=== PATIENT | female | born 1950 | race Caucasian/White ===

== ENCOUNTER 2016-12-06 04:19 | Emergency (ER) | payer OTHER ==
[2016-12-06 06:07] LABS: BASOPHIL 0.3 % (0-2); EOSINOPHIL 1.8 % (0-7); HCT 35.9 % (37.0-47.0); HGB 11.8 g/dl (12.5-16.0); LYMPHOCYTE 17.8 % (15-48); MCH 31.1 pg (25.0-31.0); MCHC 32.9 g/dL (32.0-36.0); MCV 94.7 fL (78.0-100.0); MONOCYTE 5.9 % (0-12); MPV 10.3 fL (6.0-9.5); NEUTROPHIL 74.2 % (41-80); PLT 254 K/uL (150-400); RBC 3.79 M/uL (4.20-5.40); RDW 13.3 % (11.5-14.0); WBC 7.6 K/uL (4.0-10.5)
[2016-12-06 06:22] LABS: BILIRUBIN - TOTAL 0.4 mg/dL (0.1-1.0); CREATININE 1.1 mg/dL (0.5-1.0); GLOBULIN (CALCULATION) 2.5 g/dL (2.2-4.2); POTASSIUM 3.5 mmol/L (3.5-5.1); TOTAL PROTEIN 6.5 g/dL (6.4-8.3)
[2016-12-06 07:54] LABS: BILIRUBIN NEGATIVE (NEGATIVE); BLOOD NEGATIVE Ery/uL (NEGATIVE); CLARITY CLEAR (CLEAR); COLOR YELLOW (YELLOW); GLUCOSE (U) NORMAL (NORMAL); KETONE (U) NEGATIVE (NEGATIVE); LEUKOCYTES TRACE Leu/uL (NEGATIVE); NITRITE NEGATIVE (NEGATIVE); PROTEIN NEGATIVE (NEGATIVE); UROBILINOGEN 0.2 mg/dL (0.2-1.0); pH 5.5 (5.0-9.0)
[2016-12-06 08:08] LABS: BACTERIA 1+; GRANULAR CASTS TRACE; SQUAMOUS EPITHELIAL CELLS 20-50
== END 2016-12-06 08:16 | disposition home or self-care (01) ==
LOC: FER 04:19
PROVIDERS: Emergency Medicine
DX: I95.1 Orthostatic hypotension (principal); Z82.49 Family history of ischemic heart disease and other diseases of the circulatory system; Z82.3 Family history of stroke; Z82.0 Family history of epilepsy and other diseases of the nervous system; Z79.899 Other long term (current) drug therapy
CPT/HCPCS: 36415; 70450; 80053; 81001; 85025; 93005

== ENCOUNTER 2020-12-20 00:30 | Day surgery (SDCO) | payer OTHER ==
[~2020-12-20] VITALS: Ht 170.2 cm; Wt 139.7 kg
[~2020-12-20 00:30] MED LIST: ASPIRIN EC81 MG PO; AUGMENTIN 875-1 EACH PO; CARTIA XT240 MG PO; CEFDINIR300 MG PO; COLACE100 MG PO; COZAAR50 MG PO; ELIQUIS5 MG PO; HCTZ25 MG PO; LASIX40 MG PO; LINZESS145 MCG PO; LIPITOR20 MG PO; MEDROL 4MG DOSEP4 MG PO; NITROQUIK SL0.4 MG SL; NORCO 5-325 TA1 EACH PO; OLMESARTAN PO; TOPROL XL 50 MG50 MG PO; XANAX0.25 MG PO; ZOLOFT100 MG PO
[2020-12-20 01:33] LABS: BASOPHIL 0.7 % (0-2); EOSINOPHIL 2.2 % (0-7); HGB 13.2 g/dl (12.5-16.0); LYMPHOCYTE 29.2 % (15-48); MCH 31.1 pg (25.0-31.0); MCHC 32.2 g/dL (32.0-36.0); MCV 96.5 fL (78.0-100.0); MONOCYTE 6.5 % (0-12); MPV 10.9 fL (6.0-9.5); NRBC 0; PLT 314 K/uL (150-400); RBC 4.25 M/uL (4.20-5.40); RDW 13.1 % (11.5-14.0); WBC 9.5 K/uL (4.0-10.5)
[2020-12-20 01:36] LABS: INR 1.22 (0.9-1.2); PROTHROMBIN TIME 14.6 SECONDS (11.4-13.6); PTT 29.2 SECONDS (22.2-34.7)
[2020-12-20 01:49] LABS: ALBUMIN 3.6 g/dL (3.4-5.0); BILIRUBIN - TOTAL 0.4 mg/dL (0.2-1.0); BUN/CREAT RATIO (CALC) 17.7 RATIO; CREATININE 0.79 mg/dL (0.51-0.95); GLOBULIN (CALCULATION) 3.9 g/dL; POTASSIUM 4.4 mmol/L (3.5-5.1); TOTAL PROTEIN 7.5 g/dL (6.4-8.2)
[2020-12-20 01:58] LABS: PRO-BNP 825 pg/mL (<125)
[2020-12-20 07:17] LABS: CORONAVIRUS 2019 SARS-COV-2 NEGATIVE (NEGATIVE)
[2020-12-20 07:18] LABS: INFLUENZA A NAA NEGATIVE (NEGATIVE)
[2020-12-20] MEDS ORDERED: LIPITOR40 MG PO (10:46)
[2020-12-20] MEDS ORDERED: SYNTHROID25 MCG PO (10:47)
[2020-12-20] MEDS ORDERED: CYMBALTA 30MG C30 MG PO (10:47)
[2020-12-20] MEDS ORDERED: METFORMIN HCL500 MG PO (10:48)
[2020-12-20] MEDS ORDERED: PRILOSEC20 MG PO (10:48)
--- NOTE | 2020-12-20 12:00 | NUR ---
PT'S [facility] INTERIGATED AT THIS TIME BY THIS NURSE
--- NOTE | 2020-12-20 13:37 | NUR ---
REPORTS SHE LIVES ALONE; INDEPENDENT WITH CARE SHE REPORTS; PLEASE ADVISE OF ANY DISCHARGE NEEDS
== END 2020-12-20 12:25 | disposition other institution (70) ==
LOC: FER 00:30 → FTCU 06:13
PROVIDERS: Emergency Medicine; ADMIT Internal Medicine
DX: I20.9 Angina pectoris, unspecified (principal); I10 Essential (primary) hypertension; E11.9 Type 2 diabetes mellitus without complications; E78.5 Hyperlipidemia, unspecified; G50.0 Trigeminal neuralgia; J44.9 Chronic obstructive pulmonary disease, unspecified; I50.9 Heart failure, unspecified; I48.91 Unspecified atrial fibrillation; E66.01 Morbid (severe) obesity due to excess calories; F17.200 Nicotine dependence, unspecified, uncomplicated; M54.9 Dorsalgia, unspecified; Z20.822 Contact with and (suspected) exposure to COVID-19; Z82.49 Family history of ischemic heart disease and other diseases of the circulatory system; Z88.6 Allergy status to analgesic agent; Z88.8 Allergy status to other drugs, medicaments and biological substances
CPT/HCPCS: 36415; 71045; 80053; 83880; 84484; 85025; 85610; 85730; 93005; G0378; J1940; U0002

== ENCOUNTER 2020-12-26 19:59 | Emergency (ER) | payer OTHER ==
[~2020-12-26 19:59] MED LIST changes: +CYMBALTA 30MG C30 MG PO; +LIPITOR40 MG PO; +METFORMIN HCL500 MG PO; +PRILOSEC20 MG PO; +SYNTHROID25 MCG PO
[2020-12-26 21:55] LABS: BASOPHIL 0.3 % (0-2); EOSINOPHIL 2.3 % (0-7); HCT 32.8 % (37.0-47.0); HGB 10.7 g/dl (12.5-16.0); MCH 31.7 pg (25.0-31.0); MCHC 32.6 g/dL (32.0-36.0); MONOCYTE 6.1 % (0-12); MPV 10.7 fL (6.0-9.5); NEUTROPHIL 76.9 % (41-80); NRBC 0; PLT 325 K/uL (150-400); RBC 3.38 M/uL (4.20-5.40); RDW 13.2 % (11.5-14.0); WBC 10.6 K/uL (4.0-10.5)
[2020-12-26 22:06] LABS: ALBUMIN 3.1 g/dL (3.4-5.0); BILIRUBIN - TOTAL 0.7 mg/dL (0.2-1.0); BUN/CREAT RATIO (CALC) 19.3 RATIO; CREATININE 0.88 mg/dL (0.51-0.95); GLOBULIN (CALCULATION) 3.7 g/dL; POTASSIUM 4.8 mmol/L (3.5-5.1); TOTAL PROTEIN 6.8 g/dL (6.4-8.2)
[2020-12-26 22:08] LABS: BILIRUBIN NEGATIVE (NEGATIVE); BLOOD NEGATIVE Ery/uL (NEGATIVE); CLARITY CLEAR (CLEAR); COLOR YELLOW (YELLOW); GLUCOSE (U) NORMAL (NORMAL); LEUKOCYTES NEGATIVE Leu/uL (NEGATIVE); NITRITE NEGATIVE (NEGATIVE); PROTEIN NEGATIVE (NEGATIVE); SPECIFIC GRAVITY >=1.030 (1.001-1.030)
== END 2020-12-27 01:30 | disposition other institution (70) ==
LOC: FER 19:59
PROVIDERS: Emergency Medicine
DX: I72.4 Aneurysm of artery of lower extremity (principal); E11.9 Type 2 diabetes mellitus without complications; Z88.6 Allergy status to analgesic agent; Z88.8 Allergy status to other drugs, medicaments and biological substances; Z86.79 Personal history of other diseases of the circulatory system
CPT/HCPCS: 36415; 80053; 81003; 83690; 85025; Q9967

== ENCOUNTER 2021-01-13 10:32 | Day surgery (SDCO) | payer OTHER ==
[2021-01-13 11:29] LABS: BASOPHIL 0.4 % (0-2); EOSINOPHIL 2.5 % (0-7); HCT 35.9 % (37.0-47.0); LYMPHOCYTE 17.6 % (15-48); MCH 32.2 pg (25.0-31.0); MCHC 33.4 g/dL (32.0-36.0); MCV 96.2 fL (78.0-100.0); MPV 10.8 fL (6.0-9.5); NRBC 0; PLT 340 K/uL (150-400); RBC 3.73 M/uL (4.20-5.40); RDW 13.5 % (11.5-14.0); WBC 10.5 K/uL (4.0-10.5)
[2021-01-13 11:32] LABS: INR 1.14 (0.9-1.2); PROTHROMBIN TIME 13.9 SECONDS (11.4-13.6); PTT 30.1 SECONDS (22.2-34.7)
[2021-01-13 11:40] LABS: BUN/CREAT RATIO (CALC) 20.9 RATIO; CREATININE 0.91 mg/dL (0.51-0.95); POTASSIUM 3.4 mmol/L (3.5-5.1)
[2021-01-13 12:08] LABS: CKMB <0.5 ng/mL (0.0-3.6); PRO-BNP 417 pg/mL (<125)
[2021-01-13] MEDS ORDERED: BRILINTA90 MG PO (16:05)
[2021-01-13] MEDS ORDERED: ASPIRIN EC81 MG PO (16:05)
[2021-01-13] MEDS ORDERED: K-DUR20 MEQ PO (16:07)
[2021-01-14 03:55] LABS: BASOPHIL 0.5 % (0-2); EOSINOPHIL 2.6 % (0-7); HCT 33.8 % (37.0-47.0); HGB 11.1 g/dl (12.5-16.0); MCH 31.7 pg (25.0-31.0); MCHC 32.8 g/dL (32.0-36.0); MCV 96.6 fL (78.0-100.0); MONOCYTE 7.4 % (0-12); MPV 10.7 fL (6.0-9.5); NEUTROPHIL 58.1 % (41-80); NRBC 0; PLT 250 K/uL (150-400); RDW 13.7 % (11.5-14.0); WBC 7.6 K/uL (4.0-10.5)
[2021-01-14 04:32] LABS: BUN/CREAT RATIO (CALC) 19.4 RATIO; CREATININE 1.03 mg/dL (0.51-0.95); FT4 (FREE T4) 1.4 ng/dL (0.76-1.46)
[2021-01-14] MEDS ORDERED: TOPROL XL 50 MG50 MG PO (15:14)
[2021-01-14] MEDS ORDERED: CARDIZEM CD120 MG PO (15:16)
--- NOTE | 2021-01-14 16:39 | NUR ---
PT DC'd FROM HOSPITAL & ESCOLRTED FROM UNIT VIA WHEELCHAIR W/ NO ISSUE @ 2849 - VS STABLE
== END 2021-01-14 16:45 | disposition home or self-care (01) ==
LOC: FER 10:32 → FTCU 14:23
PROVIDERS: Emergency Medicine; ADMIT Allergy & Immunology Allergy
DX: I25.10 Atherosclerotic heart disease of native coronary artery without angina pectoris (principal); I10 Essential (primary) hypertension; I48.91 Unspecified atrial fibrillation; E11.9 Type 2 diabetes mellitus without complications; E78.5 Hyperlipidemia, unspecified; J44.9 Chronic obstructive pulmonary disease, unspecified; F41.9 Anxiety disorder, unspecified; I82.409 Acute embolism and thrombosis of unspecified deep veins of unspecified lower extremity; Z95.1 Presence of aortocoronary bypass graft; Z87.891 Personal history of nicotine dependence; Z79.84 Long term (current) use of oral hypoglycemic drugs; Z79.899 Other long term (current) drug therapy; Z82.49 Family history of ischemic heart disease and other diseases of the circulatory system; Z20.822 Contact with and (suspected) exposure to COVID-19; Z79.01 Long term (current) use of anticoagulants
CPT/HCPCS: 36415; 71045; 80048; 82553; 82962; 83880; 84439; 84443; 84484; 85025; 85610; 85730; 93005; G0378; J2405; U0002